=== PATIENT | female | born 1970 | race Hispanic/Latino ===

== ENCOUNTER 2021-07-24 07:24 | Emergency (ER) | payer OTHER, SELFPAY ==
[2021-07-24 08:26] LABS: Urine Blood Negative (Negative); Urine Glucose Negative (Negative); Urine Protein Negative (Negative); Urine Specific Gravity 1.015 (1.005-1.030)
[2021-07-24] MEDS ORDERED: ONDANSETRON 4 MG/2 ML VIAL ONE (08:30)
[2021-07-24] MEDS ORDERED: FAMOTIDINE 20 MG/2 ML VIAL IV ONE (08:30)
[2021-07-24] MEDS ORDERED: NA CHLORIDE 0.9% 2,000 ML ONE (08:30)
[2021-07-24 08:31] LABS: Basophils % 0.2 % (0-1.3); Hematocrit 39.7 % (36.0-45.0); Lymphocytes % 22.4 % (15.3-44.8); MPV 6.7 fL (7.6-11.3); RBC Red Blood Cell Count 4.37 M/uL (3.86-4.86)
--- NOTE | 2021-07-24 08:47 | RAD REPORT ---
EXAM DESCRIPTION: CT - Abdomen Pelvis W Contrast - 07/24/2021 8:32 am CLINICAL HISTORY: Abdominal pain COMPARISON: none. TECHNIQUE: Computed axial tomography of the abdomen pelvis was obtained. 100 cc Isovue-300 was admin istered intravenously. Oral contrast was not requested which limits evaluation of bowel. All CT scans are performed using dose optimization technique as appropriate and may include automated exposure control or mA/KV adjustment according to patient size. FINDINGS: The liver, spleen, pancreas, adrenal and kidneys appear unremarkable. Diverticula stem from the colon. Mild to moderate stranding adjacent to the sigmoid. No free air. No abscess Mild thickening of the wall of the cecum. Small adjacent lymph nodes IMPRESSION: Mild to moderate sigmoid diverticulitis Mild thickening of the wall of the cecum. This may represent inflammation, incomplete distention or less likely mass and can be monitored on subsequent imaging Small adjacent lymph nodes.
[2021-07-24 08:54] LABS: ALT/SGPT 42 U/L (12-78); AST/SGOT 15 U/L (15-37); Albumin 3.6 g/dL (3.4-5.0); Alkaline Phosphatase 110 U/L (45-117); BUN Blood Urea Nitrogen 5 mg/dL (7-18); Bicarbonate 28 mmol/L (21-32); Bilirubin Direct < 0.1 mg/dL (0-0.2); Bilirubin Total 0.3 mg/dL (0.2-1.0); Glucose Level 101 mg/dL (74-106); Lipase 64 U/L (73-393); Potassium 3.8 mmol/L (3.5-5.1); Protein, Total 7.8 g/dL (6.4-8.2); Sodium Level 139 mmol/L (136-145)
--- NOTE | 2021-07-24 10:28 | EDPHYS ---
Physician Documentation [facility] Name: Kaitlyn Ruiz Age: 51 yrs Sex: Female : 1970 Arrival Date: 07/24/2021 Time: 07:25 Bed 19 Private MD: ED Physician Balta Contreras HPI: 07/24 07:53 This 51 yrs old Female presents to ER via Ambulatory with complaints of kdr Abdominal Pain, Abdominal Cramping. 07:54 The patient presents with abdominal pain that is diffuse, Cramping and bloating. Onset: kdr The symptoms/episode began/occurred Wednesday. The symptoms do not radiate. Associated signs and symptoms: Pertinent positives: nausea, Pertinent negatives: blood in stools, chest pain, constipation, diarrhea, dysuria, fever, headache, hematuria, palpitations, shortness of breath, vaginal discharge, vomiting blood. The symptoms are described as achy, crampy, sharp, Severe brings tears to her eyes. Modifying factors: The symptoms are alleviated by nothing, the symptoms are aggravated by movement. Severity of pain: At its worst the pain was mild moderate just prior to arrival, in the emergency department the pain is unchanged. The patient has not experienced similar symptoms in the past. The patient has not recently seen a physician. REPRESENTATIVE: 07:32 LMP N/A - Post-menopause jd3 Historical: - Allergies: 07:32 No Known Allergies; jd3 - Home Meds: 07:32 None [Active]; jd3 - PMHx: 07:32 None; jd3 - PSHx: 07:32 right overy; Appendectomy; jd3 - Immunization history:: Adult Immunizations up to date, Client reports having NOT received the Covid vaccine. - Social history:: Smoking status: Patient reports the use of cigarette tobacco products, denies chronic smoking, but will smoke occasionally. ROS: 07:54 Constitutional: Negative for fever, chills, and weight loss, Eyes: Negative for injury, kdr pain, redness, and discharge, ENT: Negative for injury, pain, and discharge, Neck: Negative for injury, pain, and swelling, Cardiovascular: Negative for chest pain, palpitations, and edema, Respiratory: Negative for shortness of breath, cough, wheezing, and pleuritic chest pain, Back: Negative for injury and pain, : Negative for injury, bleeding, discharge, and swelling, MS/Extremity: Negative for injury and deformity, Skin: Negative for injury, rash, and discoloration, Neuro: Negative for headache, weakness, numbness, tingling, and seizure activity. Psych: Negative for depression, anxiety, suicide ideation, homicidal ideation, and hallucinations, Allergy/Immunology: Negative for hives, rash, and allergies, Endocrine: Negative for neck swelling, polydipsia, polyuria, polyphagia, and marked weight changes, Hematologic/Lymphatic: Negative for swollen nodes, abnormal bleeding, and unusual bruising. 07:54 Abdomen/GI: Positive for abdominal pain, nausea, constipation, abdominal cramps, Negative for black/tarry stool, rectal pain, rectal bleeding, bowel incontinence. Exam: 07:54 Constitutional: This is a well developed, well nourished patient who is awake, alert, kdr and in no acute distress. Head/Face: Normocephalic, atraumatic. Eyes: Pupils equal round and reactive to light, extra-ocular motions intact. Lids and lashes normal. Conjunctiva and sclera are non-icteric and not injected. Cornea within normal limits. Periorbital areas with no swelling, redness, or edema. Neck: Trachea midline, no thyromegaly or masses palpated, and no cervical lymphadenopathy. Supple, full range of motion without nuchal rigidity, or vertebral point tenderness. No Meningismus. Chest/axilla: Normal chest wall appearance and motion. Nontender with no deformity. No lesions are appreciated. Cardiovascular: Regular rate and rhythm with a normal S1 and S2. No gallops, murmurs, or rubs. Normal PMI, no JVD. No pulse deficits. Respiratory: Lungs have equal breath sounds bilaterally, clear to auscultation and percussion. No rales, rhonchi or wheezes noted. No increased work of breathing, no retractions or nasal flaring. Back: No spinal tenderness. No costovertebral tenderness. Full range of motion. Skin: Warm, dry with normal turgor. Normal color with no rashes, no lesions, and no evidence of cellulitis. MS/ Extremity: Pulses equal, no cyanosis. Neurovascular intact. Full, normal range of motion. Neuro: Awake and alert, GCS 15, oriented to person, place, time, and situation. Cranial nerves II-XII grossly intact. Motor strength 5/5 in all extremities. Sensory grossly intact. Cerebellar exam normal. Normal gait. Psych: Awake, alert, with orientation to person, place and time. Behavior, mood, and affect are within normal limits. 07:54 Abdomen/GI: Inspection: abdomen appears normal, obese Bowel sounds: active, all quadrants, Palpation: soft, mild abdominal tenderness, in the abdomen diffusely. Vital Signs: 07:32 BP 138 / 85; Pulse 93; Resp 17 S; Temp 97.9(TE); Pulse Ox 99% on R/A; Weight 81.65 kg jd3 (R); Height 5 ft. 4 in. (162.56 cm) (R); Pain 5/10; 10:07 BP 136 / 75; Pulse 70; Resp 16; Pulse Ox 99% ; Pain 3/10; tc5 10:43 BP 137 / 78; Pulse 79; Resp 16; Pulse Ox 100% ; Pain 5/10; tc5 07:32 Body Mass Index 30.90 (81.65 kg, 162.56 cm) jd3 MDM: 07:54 Data reviewed: vital signs, nurses notes, lab test result(s), radiologic studies. kdr Counseling: I had a detailed discussion with the patient and/or guardian regarding: the historical points, exam findings, and any diagnostic results supporting the discharge/admit diagnosis, lab results, radiology results. 10:28 Patient medically screened. kdr 10:31 Special discussion: Based on the patient's Hx, exam, and Dx evaluation, there is no kdr indication for emergent surgery or inpatient Tx. It is understood by the patient/guardian that if the Sx's persist or worsen they need to return immediately for re-evaluation. I discussed with the patient/guardian in detail that at this point there is no indication for admission to the hospital. It is understood, however, that if the symptoms persist or worsen the patient needs to return immediately for re-evaluation. ED course: Patient was much improved with the interventions given in the ED. She was having some mild return of her lower abdominal pain prior to discharge but was remedicated. She was otherwise happy with the care provided and the plan for discharge and follow-up. 07/24 07:44 Order name: Basic Metabolic Panel; Complete Time: 08:58 kdr 07/24 07:44 Order name: CBC with Diff; Complete Time: 08:58 kdr 07/24 07:44 Order name: Hepatic Function; Complete Time: 08:58 kdr 07/24 07:44 Order name: Lipase; Complete Time: 08:58 kdr 07/24 07:52 Order name: COVID-19 : Document "Date of Symptom Onset" if Symptomatic. kdr 07/24 07:53 Order name: CT Abd/Pelvis - IV Contrast Only; Complete Time: 08:58 kdr 07/24 08:25 Order name: Urine Dipstick-Ancillary; Complete Time: 08:58 EDMT 07/24 10:05 Order name: SARS-COV-2 RT PCR; Complete Time: 10:07 EDMS 07/24 07:44 Order name: IV Saline Lock; Complete Time: 08:15 kdr 07/24 07:44 Order name: Labs collected and sent; Complete Time: 08:15 kdr 07/24 07:53 Order name: Urine Test (obtain specimen); Complete Time: 08:26 kdr Administered Medications: 08:26 Drug: NS 0.9% 1000 ml Route: IV; Rate: 1 bolus; Site: left antecubital; tc5 10:06 Follow up: IV Status: Completed infusion; IV Intake: 1000ml tc5 08:26 Drug: NS 0.9% 1000 ml Route: IV; Rate: 1 bolus; Site: left antecubital; tc5 10:06 Follow up: IV Status: Completed infusion; IV Intake: 1000ml tc5 08:26 Drug: Zofran (Ondansetron) 4 mg Route: IVP; Site: left antecubital; tc5 10:05 Follow up: Response: No adverse reaction; Pain is decreased tc5 08:26 Drug: Pepcid (famotidine) 20 mg Route: IVP; Site: left antecubital; tc5 10:05 Follow up: Response: No adverse reaction; Pain is decreased tc5 Disposition Summary: 07/24/21 10:28 Discharge Ordered Location: Home kdr Problem: new kdr Symptoms: have improved kdr Condition: Stable kdr Diagnosis - Sigmoid diverticulitis, abdominal pain, nausea kdr Followup: kdr - With: Private Physician - When: 2 - 3 days - Reason: If symptoms return, Further diagnostic work-up, Recheck today's complaints, Continuance of care, Re-evaluation by your physician Discharge Instructions: - Discharge Summary Sheet kdr - Diverticulitis, [id number] kdr - Nausea and Vomiting, Adult, [id number] kdr - Abdominal Pain, Adult, [id number] kdr Forms: - Medication Reconciliation Form kdr - Thank You Letter kdr - Antibiotic Education kdr - Prescription Opioid Use kdr Prescriptions: - Cipro 500 mg Oral Tablet - take 1 tablet by ORAL route every 12 hours for 10 days; 20 tablet; Refills: 0, kdr Product Selection Permitted - Flagyl 500 mg Oral Tablet - take 1 tablet by ORAL route every 6 hours for 10 days; 40 tablet; Refills: 0, kdr Product Selection Permitted - Zofran 4 mg Oral Tablet - take 1 tablet by ORAL route every 4-6 hours As needed; 12 tablet; Refills: 0, kdr Product Selection Permitted - Tylenol-Codeine #3 300 mg-30 mg Oral - take 1 tablet by ORAL route every 4-6 hours As needed; 12 tablet; Refills: 0, kdr Product Selection Permitted - Pepcid 20 mg Oral Tablet - take 1 tablet by ORAL route every 12 hours for 5 days; 10 tablet; Refills: 0, kdr Product Selection Permitted Signatures: Dispatcher [employer] EDMS Balta Contreras MD MD kdr Davies, Jonathon RN RN jd3 Marcella Garcia RN RN tc5 Corrections: (The following items were deleted from the chart) 09:03 07:52 CORONAVIRUS ordered. EDMT EDMS
--- NOTE | 2021-07-24 10:28 | ER ---
Nurse's Notes [facility] Name: Kaitlyn Ruiz Age: 51 yrs Sex: Female : 1970 Arrival Date: 07/24/2021 Time: 07:25 Bed 19 Private MD: Diagnosis: Sigmoid diverticulitis, abdominal pain, nausea Presentation: 07/24 07:30 Chief complaint: Patient states: "I have been having some stomach cramps since Wednesday, jd3 I was having chills and it has just gotten worse. I feel constipated, but I have diarrhea.". Coronavirus screen: At this time, the client does not indicate any symptoms associated with coronavirus-19. Ebola Screen: Patient negative for fever greater than or equal to 101.5 degrees Fahrenheit, and additional compatible Ebola Virus Disease symptoms. Initial Sepsis Screen: Does the patient meet any 2 criteria? No. Patient's initial sepsis screen is negative. Does the patient have a suspected source of infection? No. Patient's initial sepsis screen is negative. Risk Assessment: Do you want to hurt yourself or someone else? Patient reports no desire to harm self or others. Onset of symptoms was July 20, 2021. 07:30 Method Of Arrival: Ambulatory jd3 07:30 Acuity: ARNALDO 3 jd3 07:33 Note took PMS pills to help with cramping that only works for an hour. jd3 BUSINESS ASST: 07:32 LMP N/A - Post-menopause jd3 Historical: - Allergies: 07:32 No Known Allergies; jd3 - Home Meds: 07:32 None [Active]; jd3 - PMHx: 07:32 None; jd3 - PSHx: 07:32 right overy; Appendectomy; jd3 - Immunization history:: Adult Immunizations up to date, Client reports having NOT received the Covid vaccine. - Social history:: Smoking status: Patient reports the use of cigarette tobacco products, denies chronic smoking, but will smoke occasionally. Vital Signs: 07:32 BP 138 / 85; Pulse 93; Resp 17 S; Temp 97.9(TE); Pulse Ox 99% on R/A; Weight 81.65 kg jd3 (R); Height 5 ft. 4 in. (162.56 cm) (R); Pain 5/10; 10:07 BP 136 / 75; Pulse 70; Resp 16; Pulse Ox 99% ; Pain 3/10; tc5 10:43 BP 137 / 78; Pulse 79; Resp 16; Pulse Ox 100% ; Pain 5/10; tc5 07:32 Body Mass Index 30.90 (81.65 kg, 162.56 cm) jd3 ED Course: 07:25 Patient arrived in ED. am2 07:29 Balta Contreras MD is Attending Physician. kdr 07:31 Triage completed. jd3 07:34 Arm band placed on. jd3 08:00 Marcella Garcia, KRISTEN is Primary Nurse. tc5 08:00 Initial lab(s) drawn, by me, sent to lab. COVID swab sent to lab. Inserted saline lock: kj1 20 gauge in left antecubital area, using aseptic technique. Blood collected. 08:26 Urine Dipstick-Ancillary Sent. tc5 08:32 CT Abd/Pelvis - IV Contrast Only In Process Unspecified. EDMS 10:07 pt up to the bathroom independently, reports feeling better, pain is decreased, rates tc5 abd pain 3/10, pt resting, VSS, will cont to monitor. 10:44 IV discontinued, intact, bleeding controlled, No redness/swelling at site. Pressure tc5 dressing applied. Administered Medications: 08:26 Drug: NS 0.9% 1000 ml Route: IV; Rate: 1 bolus; Site: left antecubital; tc5 10:06 Follow up: IV Status: Completed infusion; IV Intake: 1000ml tc5 08:26 Drug: NS 0.9% 1000 ml Route: IV; Rate: 1 bolus; Site: left antecubital; tc5 10:06 Follow up: IV Status: Completed infusion; IV Intake: 1000ml tc5 08:26 Drug: Zofran (Ondansetron) 4 mg Route: IVP; Site: left antecubital; tc5 10:05 Follow up: Response: No adverse reaction; Pain is decreased tc5 08:26 Drug: Pepcid (famotidine) 20 mg Route: IVP; Site: left antecubital; tc5 10:05 Follow up: Response: No adverse reaction; Pain is decreased tc5 Intake: 10:06 IV: 1000ml; Total: 1000ml. tc5 10:06 IV: 1000ml; Total: 2000ml. tc5 Outcome: 10:28 Discharge ordered by . kdr 10:44 Patient left the ED. tc5 Signatures: Dispatcher [employer] EDMS Balta Contreras MD MD kdr Moreno, Amanda am2 Davies, Jonathon RN RN jDanna Valencia kj1 aMrcella Garcia RN RN tc5 Corrections: (The following items were deleted from the chart) 07:34 07:32 Pulse 93bpm; Resp 17bpm; Spontaneous; Pulse Ox 99% RA; Temp 97.9F Temporal; 81.65 jd3 kg Reported; Height 5 ft. 4 in. Reported; BMI: 30.9; Pain 5/10; jd3 09:03 08:15 CORONAVIRUS drawn and sent. kj1 ED
[2021-07-24 11:09] VITALS: TEMP 97.9
[2021-07-24 11:11] VITALS: BP 137/78; O2SAT 100
== END 2021-07-24 10:44 | disposition home or self-care (01) ==
LOC: ER 07:24
DX: K57.32 Diverticulitis of large intestine without perforation or abscess without bleeding (principal); R11.0 Nausea; F17.210 Nicotine dependence, cigarettes, uncomplicated; Z20.822 Contact with and (suspected) exposure to COVID-19
CPT/HCPCS: 36415; 74177; 80048; 80076; 81003; 82565; 83690; 85025; 96361; 96374; 96375; 99284; J2405; J7030; Q9967; U0003